=== PATIENT | female | born 1960 | race Caucasian/White ===

== ENCOUNTER 2018-10-01 19:20 | Inpatient (IN) ==
[2018-10-01] MEDS ORDERED: MORPHINE IV ONE (20:08)
[2018-10-01] MEDS ORDERED: NS 1,000 ML IV ONE ×2 (20:08→22:40)
[2018-10-01] MEDS ORDERED: ZOFRAN IV ONE (20:08)
[2018-10-01] MEDS ORDERED: ASPIRIN PO ONE (21:11)
[2018-10-01 21:31] LABS: BASO# 0.04 X1000 (0.0-0.2); BASO% 0.3 % (0.0-0.8); EOS# 0.07 X1000 (0.0-0.7); EOS% 0.5 % (0.0-10.0); HEMATOCRIT 33.2 % (37.0-47.0); HEMOGLOBIN 10.6 g/dL (12.0-16.0); IMM GRAN# 0.08 X1000 (0.0-0.04); IMM GRAN% 0.5 % (0.0-0.5); LYMPH# 1.14 X1000 (1.2-3.4); LYMPH% 7.5 % (20.5-51.1); MCH 29.4 PG (27-31); MCHC 31.9 g/dL (33-37); MCV 92.2 FL (81-99); MONO# 1.08 X1000 (0.11-0.59); MONO% 7.1 % (1.7-9.3); MPV 11.4 FL (7.4-10.4); NEUT# 12.73 X1000 (1.4-6.5); NEUT% 84.1 % (42.2-75.2); PLT 273 X1000 (130-400); WBC 15.14 X1000 (4.8-10.8)
[2018-10-01 21:32] LABS: INR 1.03
[2018-10-01 21:33] LABS: PTT 32.6 Seconds (22.3-41.8)
[2018-10-01 21:43] LABS: ALBUMIN 3.3 g/dL (3.5-5.0); CALCIUM 8.9 mg/dL (8.8-10.2); CREATININE 1.3 mg/dL (0.5-0.9); POTASSIUM 4.3 mmol/L (3.5-5.1); TOTAL BILIRUBIN 0.3 mg/dL (0.20-1.00); TOTAL PROTEIN 6.4 g/dL (6.3-8.3)
[2018-10-01 22:11] LABS: CK INDEX 0.3 (0.0-2.5); CK-MB 3.39 ng/mL (0.0-5.0)
[2018-10-01] MEDS ORDERED: LASIX IV ONE (22:14)
[2018-10-01] MEDS ORDERED: ROCEPHIN 1 GM in NS 50 ML IV ONE (22:15)
[2018-10-01] MEDS ORDERED: TYLENOL PO ONE (22:26)
[2018-10-01] MEDS ORDERED: VANCOMYCIN 1 GM/NS 1 GM/250 ML IVPB IV ONE (22:35)
[2018-10-01] MEDS ORDERED: NS 500 ML IV ONE (22:40)
[2018-10-01] MEDS ORDERED: ZOFRAN IV PRN (22:44)
[2018-10-01] MEDS ORDERED: LOVENOX SUBQ ONE (23:25)
[2018-10-01 23:35] LABS: URINE SOURCE CATH
[2018-10-02 00:04] LABS: BILIRUBIN URINE NEGATIVE (NEGATIVE); BLOOD URINE NEGATIVE (NEGATIVE); CLARITY CLEAR (CLEAR); COLOR YELLOW; GLUCOSE URINE NEGATIVE (NEGATIVE); KETONE URINE NEGATIVE (NEGATIVE); LEUKOCYTES URINE TRACE (NEGATIVE); NITRITE URINE NEGATIVE (NEGATIVE); PH URINE 6.5; PROTEIN URINE TRACE mg/dL (NEGATIVE); SP GRAVITY URINE 1.005; URINE BACTERIA 1+ /HFP; URINE EPITHELIAL CELLS <10 /HPF (<10); URINE RBC <10 /HPF (<10); URINE WBC <10 /HPF (<10); UROBILINOGEN URINE 1 mg/dL
[2018-10-02] MEDS: LOVENOX SUBQ SCH ×2 (00:36→10:36)
[2018-10-02] MEDS ORDERED: NS 1,000 ML ONE (01:33)
[2018-10-02] MEDS ORDERED: LEVOPHED ONE (01:36)
[2018-10-02] MEDS ORDERED: VANCOMYCIN 500 MG/NS 500 MG/100 ML IVPB IV ONE (02:00)
[2018-10-02] MEDS ORDERED: MAXIPIME 2 GM in NS 100 ML IV ONE (02:00)
[2018-10-02] MEDS ORDERED: LEVOPHED 8 MG in D5 1/2 NS 250 ML IV SCH (02:00)
[2018-10-02] MEDS ORDERED: MORPHINE IV PRN (03:39)
[2018-10-02] MEDS ORDERED: PHENERGAN PO PRN (07:12)
[2018-10-02] MEDS ORDERED: TYLENOL PR PRN (07:13)
[2018-10-02] MEDS: PROTONIX IV SCH (08:20)
[2018-10-02] MEDS: SODIUM CHLORIDE 0.9% INJ SCH (08:20)
[2018-10-02] MEDS ORDERED: VANCOMYCIN IV PER PHARMACY MISC SCH (09:00)
--- NOTE | 2018-10-02 09:31 | Diag Imaging Result Doc PS360 ---
EXAM: CHEST-2 VIEWS INDICATION: cp/productive cough TECHNIQUE: 2 views COMPARISON: None. FINDINGS: There is infiltrate in the right lower lung zone suggesting pneumonia. The left lung is clear. There is no discrete pleural fluid collection or pneumothorax. Cardiac silhouette appears mildly prominent, probably due to magnification from AP technique. Central vasculature is unremarkable. IMPRESSION: Right lower lung zone consolidation is described. Electronically signed by Jovan Law 10/02/2018 9:29 AM
[2018-10-02] MEDS ORDERED: DUONEB (A & A) INH PRN (09:33)
[2018-10-02] MEDS: NS 1,000 ML IV SCH ×2 (10:00→19:47)
[2018-10-02 10:12] LABS: HEMATOCRIT 30.8 % (37.0-47.0); HEMOGLOBIN 9.7 g/dL (12.0-16.0); MCH 29.4 PG (27-31); MCHC 31.5 g/dL (33-37); MCV 93.3 FL (81-99); MPV 11.8 FL (7.4-10.4); RBC 3.3 XMIL (4.2-5.4); RDW 17.3 % (11.5-14.5); WBC 5.94 X1000 (4.8-10.8)
[2018-10-02 10:24] LABS: AGAP 10; ALBUMIN 2.8 g/dL (3.5-5.0); BUN 23 mg/dL (8-22); CALCIUM 8.1 mg/dL (8.8-10.2); CHLORIDE 106 mmol/L (98-107); COSMO 283; CREATININE 0.9 mg/dL (0.5-0.9); ESTIMATED GFR > 60; GLUCOSE 135 mg/dL (70-104); PHOSPHORUS 2.3 mg/dL (2.7-4.5); POTASSIUM 4.1 mmol/L (3.5-5.1); SODIUM 139 mmol/L (136-145); TCO2 23 mmol/L (25-35)
[2018-10-02] MEDS: CELEXA PO SCH (11:21)
[2018-10-02] MEDS: SUBOXONE 2 MG/0.5 MG FILM SL SCH ×2 (11:21→22:03)
[2018-10-02] MEDS: DUONEB (A & A) INH SCH ×4 (12:28→23:48)
[2018-10-02 13:07] LABS: UR AMPHETAMINES QUAL NONE DETECTED (NONE DETECT); UR BARBITUATES QUAL NONE DETECTED (NONE DETECT); UR BENZODIAZEPIN QUAL PRESUMPTIVE POSITIVE (NONE DETECT); UR CANNABINOIDS QUAL NONE DETECTED (NONE DETECT); UR COCAINE QUAL NONE DETECTED (NONE DETECT); UR METHADONE QUAL NONE DETECTED (NONE DETECT); UR METHAMPHETAMINE QUAL NONE DETECTED (NONE DETECT); UR OPIATES QUAL PRESUMPTIVE POSITIVE (NONE DETECT); UR OXYCODONE QUAL NONE DETECTED (NONE DETECT); UR PCP QUAL NONE DETECTED (NONE DETECT); UR PROPOXYPHENE QUAL NONE DETECTED (NONE DETECT); UR TCA QUAL PRESUMPTIVE POSITIVE (NONE DETECT)
--- NOTE | 2018-10-02 13:15 | Extremity Venous Study ---
EXAM: Venous U/S Bilateral Legs INDICATION: elevated ddimer, CP, hypotension TECHNIQUE: COMPARISON: None. FINDINGS: There is normal Doppler flow, compressibility, and augmentation involving the deep venous systems of the right and the left lower extremities. The great saphenous veins on the right and the left also appear to be patent. IMPRESSION: No evidence of DVT. Electronically signed by Jovan Law 10/02/2018 1:12 PM
[2018-10-02] MEDS: CARAFATE PO SCH ×2 (13:33→16:11)
--- NOTE | 2018-10-02 13:43 | Diag Imaging Result Doc PS360 ---
EXAM: CT ANGIOGRM PULMONARY ARTERIES INDICATION: elevated ddimer, acute hypoxic resp failure TECHNIQUE: This exam was performed using automated exposure control, adjustment of mA or kV according to patient size, and/or use of iterative reconstruction technique. Thin section axial images and 3-D MIPS were obtained. COMPARISON: None. FINDINGS: There is no evidence of pulmonary embolism. There is no evidence of aortic dissection or aneurysm. There is cardiomegaly. There are small shotty mediastinal and hilar lymph nodes that are probably reactive. There is fairly severe pulmonary emphysema. There is dense airspace consolidation in the inferior right upper lobe and, to a lesser degree, the right middle lobe and right lower lobe consistent with pneumonia. There are very small effusions at both lung bases and there is bibasilar atelectasis. There is no pneumothorax. There is thoracic spondylosis. The bony structures of the thorax are grossly intact. IMPRESSION: 1.Pulmonary emphysema. 2.Multilobar pneumonia on the right. 3.Cardiomegaly. 4.No evidence of pulmonary embolism. Electronically signed by Jovan Law 10/02/2018 1:41 PM
[2018-10-02] MEDS: VALIUM PO PRN (16:11)
[2018-10-02] MEDS: MAXIPIME 2 GM in NS 100 ML IV SCH (16:13)
--- NOTE | 2018-10-02 18:19 | HISTORY AND PHYSICAL ---
CHIEF COMPLAINT: Is cough, fever, chills, generalized weakness, chest pain and left arm weakness. HISTORY OF PRESENT ILLNESS: This is a 58-year-old female with a history of COPD , asthma, who presented to the emergency room complaining of fever, chills, cough, chest pain and general weakness. She stated that this had been present for 3 to 4 days and that over the 24 hours prior to coming in she had some bilateral hip and back pain. This was after she started having fevers as high as 102. She did have a temperature of 101.3 degrees in the emergency room with some hypotension and was found to have right lower lobe pneumonia on chest x-ray. She was given IV hydration as well as vancomycin and Rocephin in the emergency room with Maxipime and she was admitted to ICU on sepsis protocol. PAST MEDICAL HISTORY: Asthma, COPD, hypertension, seizure history. PAST SURGICAL HISTORY: Hysterectomy, back surgery x9, 2 knee surgeries. SOCIAL: Smokes a pack of cigarettes a day. She denies alcohol or illicit drug use. ALLERGIES: Atorvastatin with unknown reaction. HOME MEDICATIONS: A list will be obtained by the nursing staff and will be restarted as is appropriate. REVIEW OF SYSTEMS: Discussed with the patient with pertinent positives stated in the HPI. She denied any syncope, dizziness, any sinus pain, throat pain, palpitations, any shortness of breath, PND, orthopnea, nausea, vomiting, diarrhea, constipation, black or bloody vomitus or stools, any hematuria, dysuria, frequency, urgency. PHYSICAL EXAMINATION: GENERAL: This is a 58-year-old female who is lying in the bed in ICU in no distress. VITAL SIGNS: Blood pressure is 105/51 with a heart rate of 70, respirations are 16, temperature is 97.9 degrees with O2 saturation 98% on 3 L nasal cannula. HEENT: Pupils are equal, round, react to light. EOMs are intact. Sclerae are anicteric. Head is normocephalic, atraumatic. Mucous membranes are moist. NECK: Supple with trachea midline. CARDIOVASCULAR: Regular rate and rhythm. S1 and S2 appreciated. She has no lower extremity edema. Peripheral pulses are palpable x4 extremities. PULMONARY: Breath sounds are clear with no increased work of breathing noted. Chest rises and falls symmetric respiration. GASTROINTESTINAL: Abdomen is soft, nontender, nondistended with bowel sounds in all 4 quadrants. GENITOURINARY: Hillman is patent to bedside bag with clear urine draining. NEUROLOGIC: She is alert and oriented x3. SKIN: Warm and dry. LABS: WBC is 15.1 with hemoglobin 10.6, hematocrit 33.2, platelets of 273,000. D-dimer is 2.34, sodium is 134, potassium 4.3, BUN 26, creatinine 1.3 with a glucose of 203. Urinalysis is essentially negative. Urine drug screen is presumptive positive for opiates, tricyclics and benzodiazepine. Chest x-ray reveals right lower lung consolidation. ASSESSMENT AND PLAN: 1. Sepsis secondary to pneumonia. 2. Right lower lobe pneumonia. Blood cultures were obtained. She was started on vancomycin and Maxipime which we will continue and any further antibiotics will be culture driven. 3. History of chronic obstructive pulmonary disease with mild exacerbation. She will be placed on DuoNeb q.4 hours with q.2 hours p.r.n. Will identify her home medications and continuing these as is appropriate. 4. Hypertension. The patient was hypotensive in the emergency room. Will monitor vital signs and restart antihypertensives when appropriate. 5. Acute hypoxic respiratory failure. The patient did have an O2 saturation of 81%. Will give supplemental oxygen, treatments as stated above and follow. 6. Acute kidney injury. rehydrate, renal dose medications, we will repeat labs this morning. 7. Elevated D-dimer. We will obtain a V/Q study due to her creatinine being elevated as well as a bilateral lower extremity Doppler. We will continue Lovenox 1 mg/kg until results of test. If these are negative for PE or DVT we will stop treatment dose of Lovenox. 8. Deep vein thrombosis prophylaxis. As stated above will continue Lovenox as long as pertinent then we will decrease to a prophylaxis dose. 9. Gastrointestinal prophylaxis. Will use Protonix. 10. History of opiate abuse. The patient is on Suboxone. We will restart at appropriate dose. Further treatments pending hospital course. Dictated by EVERETTE Ramos for Federico Phillip MD This chart was documented by, EVERETTE Ramos and accurately reflects the services performed, treatment plan and medical decisions as attested by the providers signature Federico Phillip MD. cc: MoonEVERETTE Alvarez MD [facility]
--- NOTE | 2018-10-02 19:25 | HISTORY AND PHYSICAL ---
ADDENDUM: Patient seen and examined by myself, full note dictated and discussed with nurse practitioner. The patient presented to the hospital with febrile illness. Her blood pressures were terribly low. She was started on Levophed. Currently we are weaning off her Levophed and she is improving. Will continue antibiotics and supportive care. cc: Federico Phillip MD
[2018-10-02] MEDS: ANORO ELLIPTA 62.5-25 MCG INH INH SCH (19:58)
[2018-10-02] MEDS: TYLENOL PO PRN (19:59)
[2018-10-03] MEDS: NS 1,000 ML IV SCH (00:05)
[2018-10-03] MEDS: VALIUM PO PRN ×3 (00:05→18:59)
[2018-10-03] MEDS: TYLENOL PO PRN (02:06)
[2018-10-03] MEDS: MAXIPIME 2 GM in NS 100 ML IV SCH ×2 (03:25→18:58)
[2018-10-03] MEDS: DUONEB (A & A) INH SCH ×6 (03:52→23:12)
[2018-10-03] MEDS ORDERED: VANCOMYCIN 1,500 MG in NS 250 ML IV SCH ×2 (05:00→23:00)
[2018-10-03 06:35] LABS: HEMATOCRIT 29.5 % (37.0-47.0); HEMOGLOBIN 9.1 g/dL (12.0-16.0); MCH 29.2 PG (27-31); MCHC 30.8 g/dL (33-37); MCV 94.6 FL (81-99); MPV 11.2 FL (7.4-10.4); RBC 3.12 XMIL (4.2-5.4); RDW 17.5 % (11.5-14.5); WBC 5.58 X1000 (4.8-10.8)
[2018-10-03 06:44] LABS: AGAP 8; BUN 15 mg/dL (8-22); CALCIUM 8.2 mg/dL (8.8-10.2); CHLORIDE 108 mmol/L (98-107); CREATININE 0.9 mg/dL (0.5-0.9); ESTIMATED GFR > 60; POTASSIUM 4.1 mmol/L (3.5-5.1); SODIUM 140 mmol/L (136-145); TCO2 24 mmol/L (25-35)
[2018-10-03] MEDS: ANORO ELLIPTA 62.5-25 MCG INH INH SCH ×2 (08:15→19:25)
[2018-10-03] MEDS: CELEXA PO SCH (09:05)
[2018-10-03] MEDS: CARAFATE PO SCH ×3 (09:05→18:59)
[2018-10-03] MEDS: PROTONIX IV SCH (09:05)
[2018-10-03] MEDS: SUBOXONE 2 MG/0.5 MG FILM SL SCH ×2 (09:14→21:26)
[2018-10-03] MEDS: LOVENOX SUBQ SCH (09:28)
[2018-10-03 12:37] LABS: ALBUMIN 2.8 g/dL (3.5-5.0); GLUCOSE 109 mg/dL (70-104); PHOSPHORUS 3.1 mg/dL (2.7-4.5)
[2018-10-03 13:34] LABS: COSMO 281
[2018-10-03] MEDS: NEURONTIN PO SCH ×2 (13:49→20:50)
[2018-10-03] MEDS ORDERED: SEROQUEL PO SCH (21:00)
[2018-10-04] MEDS: DUONEB (A & A) INH SCH ×4 (03:06→15:26)
[2018-10-04] MEDS: NEURONTIN PO SCH ×2 (04:06→12:00)
--- NOTE | 2018-10-04 05:05 | PROGRESS NOTE ---
DATE: 10/03/2018 SUBJECTIVE: Patient notes that she is feeling better. Denies any chest pain, palpitations. States she is starting to eat better. Denies any fevers. OBJECTIVE: Vital signs: Temperature 97.7, temperature pulse 63, respiratory rate 20, BP 134/65. General: Patient is awake, alert, currently in no respiratory distress, sitting in the bed. HEENT: Normocephalic, atraumatic. [place]. Neck: Supple. CARDIOVASCULAR: Regular rate. Chest: Clear and nonlabored. Abdomen: Soft and nondistended. Extremities: Moves all extremities. ASSESSMENT: 1. Sepsis due to pneumonia, resolved. 2. Right lower lobe pneumonia, improved. 3. Chronic obstructive pulmonary disease with exacerbation improving. 4. Hypertension, stable. 5. Elevated D-dimer. She will need a Ventilation/Perfusion scan tomorrow. D-dimer with a negative ultrasound per report; although, do not have final dictation and a negative CT scan. 6. Chronic pain. 7. Chronic insomnia. 8. Chronic anxiety. PLAN: Discussed with patient that we cannot increase her Suboxone back to her home dosage and continue her high dose of benzos, as well as Ambien. Discussed with her the perils of this combination to include respiratory failure and unintended . We will start back her Seroquel, but not her Ambien magaly. She currently is on half-dose Suboxone. Hopefully, we can increase her Suboxone tomorrow to a full dose at 8/2 and be able to discharge home. cc: Federico Phillip MD
[2018-10-04 05:51] LABS: HEMATOCRIT 30.7 % (37.0-47.0); HEMOGLOBIN 9.4 g/dL (12.0-16.0); MCH 28.8 PG (27-31); MCHC 30.6 g/dL (33-37); MCV 94.2 FL (81-99); RBC 3.26 XMIL (4.2-5.4); RDW 17.4 % (11.5-14.5); WBC 6.44 X1000 (4.8-10.8)
[2018-10-04 06:09] LABS: AGAP 11; ALBUMIN 2.9 g/dL (3.5-5.0); BUN 8 mg/dL (8-22); CHLORIDE 106 mmol/L (98-107); COSMO 286; CREATININE 0.7 mg/dL (0.5-0.9); ESTIMATED GFR > 60; GLUCOSE 108 mg/dL (70-104); PHOSPHORUS 3.5 mg/dL (2.7-4.5); POTASSIUM 3.7 mmol/L (3.5-5.1); SODIUM 144 mmol/L (136-145); TCO2 28 mmol/L (25-35)
[2018-10-04] MEDS: ANORO ELLIPTA 62.5-25 MCG INH INH SCH (08:05)
[2018-10-04] MEDS: PROTONIX IV SCH (08:54)
[2018-10-04] MEDS: CELEXA PO SCH (08:54)
[2018-10-04] MEDS: CARAFATE PO SCH ×2 (08:54→12:00)
[2018-10-04] MEDS: LOVENOX SUBQ SCH (08:54)
[2018-10-04] MEDS: SODIUM CHLORIDE 0.9% INJ SCH (08:54)
[2018-10-04] MEDS ORDERED: TRICOR PO SCH (09:00)
[2018-10-04] MEDS: SUBOXONE 2 MG/0.5 MG FILM SL SCH (09:09)
[2018-10-04] MEDS: VALIUM PO PRN (12:04)
[2018-10-04 12:30] VITALS: BP 162/72
[2018-10-04] MEDS: TYLENOL PO PRN (12:38)
[2018-10-04] MEDS: MAXIPIME 2 GM in NS 100 ML IV SCH (15:51)
--- NOTE | 2018-10-05 03:46 | PROGRESS NOTE ---
DATE: 10/04/2018 The patient was seen on the day of discharge. She is doing well. Apparently, she was started on pressors but she is on the floor now, but I think she is stabilized. She does have a right lower lobe pneumonia. She has been on vancomycin and cefepime, had been doing okay. Today, plan was to discharge her. She was stable. She had some sepsis on admission. CTA was negative for PE but she has emphysema and multilobar pneumonia. Clinically, she was doing well. Saturations were 92 on 2 L, 86% on room air. She does have oxygen but she will need to be set up for further oxygen, I guess. In any case, she was felt stable for discharge. cc: Blas Calix MD
--- NOTE | 2018-10-09 08:06 | PROVIDER DOCUMENTATION ---
This chart was entered by Marizol Deleon Scribe, acting as scribe for Hira Cedeño CRNP. HPI-Chest Pain <Finesse Jay - Last Filed: 10/01/18 22:36> - General Source: patient - History of Present Illness-CP Location: reports: central Chest Pain Radiation: reports: arms (leftweakness- no pain) Severity in ED: mild Onset/Duration: 24 hours ago Timing: still present Context/Activities at Onset: reports: light activity Modifying Factors: improves with: breathing (worsens pain) Associated Symptoms: reports: fever/chills, weakness. denies: back pain, nausea , shortness of breath, vomiting Nitro Today/Relief: no nitro taken today Aspirin Treatment Today: no aspirin today Similar Symptoms Previously?: No Recently Seen Here or By Another Healthcare Provider: No <Hira Cedeño - Last Filed: 10/09/18 08:06> - General Chief Complaint: General Adult Stated Complaint: POSS STROKE LIKE SX Time Seen by Provider: 10/01/18 19:48 Allergies/Adverse Reactions: Patient Allergies Allergy/AdvReac Type Severity Reaction Status Date / Time atorvastatin calcium * Allergy Unknown Verified 07/19/18 13:40 [From Lipitor] Home Medications: Home Medication List Medication Instructions Recorded Confirmed Last Taken Type Fenofibrate [Fenoglide] 130 mg PO DAILY 08/08/14 10/02/18 Unknown History Losartan Potassium 50 mg PO DAILY 08/08/14 10/02/18 08/08/14 07:00 History Quetiapine Fumarate [Seroquel] 100 mg PO HS 08/08/14 10/02/18 08/07/14 20:00 History Varenicline [Chantix] 1 mg PO DAILY 08/08/14 10/02/18 Unknown History Zolpidem [Ambien] 10 mg PO QHS 08/08/14 10/02/18 08/06/14 21:00 History Buprenorphine/Naloxone S.l. 1 each SL Q12HR 10/02/18 10/02/18 Unknown History [Suboxone 8 mg/2 mg] Citalopram [Celexa] 20 mg PO DAILY 10/02/18 10/02/18 Unknown History Diazepam [Valium] 5 mg PO Q8HR 10/02/18 10/02/18 Unknown History Sucralfate [Carafate] 1 gm PO TID 10/02/18 10/02/18 Unknown History Umeclidinium Brm/Vilanterol Tr 1 each IH Q12HR 10/02/18 10/02/18 Unknown History [Anoro Ellipta 62.5-25 Mcg INH] Gabapentin 300 mg PO TID 10/03/18 10/03/18 Unknown History Albuterol 2.5MG/Ipratrop 0.5MG 3 ml INH RTQ6H #120 neb 10/04/18 Unknown Rx [Duoneb] CefUROXIME [Ceftin] 250 mg PO Q12HR 7 Days #14 tab 10/04/18 Unknown Rx - History of Present Illness-CP Nature of Presenting Problem: pt is a 58 yr old female presenting with chest pain, left arm weakness, cough, fever/chills and general weakness. pt denies shortness of breath. (Marizol Deleon ) pt is a 58 yr old female presenting with chest pain, left arm weakness, cough, fever/chills and general weakness. pt denies shortness of breath. (Hira Cedeño) Review of Systems - Adult - REVIEW OF SYSTEMS - ADULT Constitutional: reports: chills, fever, fatique Eyes: denies: discharge, blurred vision, double vision, redness Ears, Nose, Mouth & Throat: denies: ear pain, sinus problem, throat pain Cardiovascular: reports: chest pain. denies: palpitations, syncope Respiratory: reports: cough, wheezing. denies: shortness of breath Gastrointestinal: denies: abdominal pain, diarrhea, nausea, vomiting Genitourinary: reports: no symptoms reported Musculoskeletal: denies: back pain, muscle aches, neck pain Integumentary: reports: no symptoms reported Neurological: reports: other ( left arm weakness). denies: dizziness/vertigo, headache/migraines, syncope Psychiatric: reports: no symptoms reported Endocrine: reports: no symptoms reported Hematologic/Lymphatic: reports: no symptoms reported Allergic/Immunologic: reports: no symptoms reported All Other Systems: Reviewed and Negative <Hira Cedeño - Last Filed: 10/09/18 08:06> Past History - Adult - PAST MEDICAL HISTORY-ADULT Review of Records: reports: Nursing Assessment Review, Medications Reviewed, Social history reviewed & non-contributory. Major Childhood Illnesses: reports: denies history Cardiovascular: reports: denies history Respiratory: reports: denies history Gastrointestinal: reports: denies history Obstetrical/Gynecological: reports: denies history Genitourinary: reports: denies history Musculoskeletal: reports: denies history Neurological: reports: denies history Endocrine/Immune: reports: denies history Other Conditions: reports: denies history - IMMUNIZATION STATUS Childhood Immunizations: See Nurse Assessment Flu Vaccine: See Nurse Assessment - FAMILY HISTORY Family History: reviewed, not pertinent - SOCIAL HISTORY Smoking: cigarettes Provider spent 3-5 mins advising pt. on dangers of tobacco.: Discussed manners to quit use, and f/u contacts for add'l counseling. Substance Use: denies Living Situation: family <Hira Cedeño - Last Filed: 10/09/18 08:06> Physical Exam-General - PHYSICAL EXAM-ADULT Initial Vital Signs Reviewed: Yes - CONSTITUTIONAL General Appearance: alert, no apparent distress, obese - EYES Eyes: PERRL/EOMI - HEAD, EARS, NOSE, MOUTH & THROAT HENMT: normocephalic/atraumatic, moist mucous membranes, normal ENT inspection - NECK Neck: non-tender, full range of motion, supple - RESPIRATORY Respiratory: chest non-tender, no pleuratic chest pain, no respiratory distress , rhonchi, wheezing (inspritory/expritory) - CARDIOVASCULAR Cardiovascular: normal peripheral pulses, no edema, no gallop, no JVD, tachycardia (102) - GASTROINTESTINAL (ABDOMEN) Abdominal Exam: normal bowel sounds, non tender, soft - LYMPHATIC Lymphatic: no adenopathy - MUSCULOSKELETAL Back Exam: normal inspection, no CVA tenderness, no vertebral tenderness Extremity: normal range of motion, non-tender, normal gait, normal inspection - SKIN Integumentary: normal color, normal turgor, warm/dry - NEUROLOGIC Neurologic: grossly normal, no motor/sensory deficits. negative: facial droop, focal weakness, motor weakness - PSYCHIATRIC Psych/Mental Status: normal mood/affect, normal thought content, normal thought process, oriented x 3 <Hira Cedeño - Last Filed: 10/09/18 08:06> Progress - PLAN OF CARE/RESULTS Result Diagrams: 10/01/18 20:10 10/01/18 20:10 <Finesse Jay - Last Filed: 10/01/18 22:36> - PLAN OF CARE/RESULTS Result Diagrams: 10/04/18 04:57 10/04/18 04:57 <Hira Cedeño - Last Filed: 10/09/18 08:06> - PLAN OF CARE/RESULTS Progress/Plan/Lab Results: Orders Category Date Time Status Admit - [facility] Routine AdmDCTranf 10/01/18 22:44 Active Cardiac Monitoring DIRECTED Care 10/01/18 21:11 Completed Notify MD/PA/EVERETTE for exam NOW Care 10/01/18 22:41 Completed Oxygen Therapy- ED Nursing DIRECTED Care 10/01/18 21:11 Completed Repeat Vital Signs .Blood Pressure Care 10/01/18 22:41 Completed Repeat Vital Signs .Heart Rate Care 10/01/18 22:41 Completed Repeat Vital Signs .Oxygen Saturation Care 10/01/18 22:41 Completed Repeat Vital Signs .Respiratory Rate Care 10/01/18 22:41 Completed Repeat Vital Signs .Temp Care 10/01/18 22:41 Completed Resuscitation Status Routine Care 10/01/18 22:44 Ordered Saline Loc NOW Care 10/01/18 21:11 Completed Vital Signs Order Q 4-HR ASSESS Care 10/01/18 22:44 Active Z-Document. for Tele Applied ORDERED Care 10/01/18 22:46 Completed CHEST-2 VIEWS [RAD] Stat Exams 10/01/18 21:11 Completed AMYLASE [CHEM] Stat Lab 10/01/18 20:10 Completed BLOOD CULTURE [BLDCUL] Stat Lab 10/01/18 20:36 Completed CBC WITH ELECTRONIC DIFF [HEME] Stat Lab 10/01/18 20:10 Completed CK PROFILE [SP CHEM] Stat Lab 10/01/18 20:10 Completed COMPREHENSIVE METABOLIC PANEL [CHEM] Stat Lab 10/01/18 20:10 Completed D-DIMER [COAG] Stat Lab 10/01/18 20:10 Completed LACTATE, PLASMA [CHEM] Stat Lab 10/01/18 20:10 Completed LIPASE [CHEM] Stat Lab 10/01/18 20:10 Completed PRO B-NATRIURETIC PEPTIDE Stat Lab 10/01/18 20:10 Completed PROTIME WITH INR [COAG] Stat Lab 10/01/18 20:10 Completed PTT [COAG] Stat Lab 10/01/18 20:10 Completed TROPONIN T Stat Lab 10/01/18 20:10 Completed 0.9% Sodium Chloride Inj [Ns] 1,000 ml Med 10/01/18 20:08 Discontinued IV 999 mls/hr 0.9% Sodium Chloride Inj [Ns] 1,000 ml Med 10/01/18 22:40 Discontinued IV As Directed 0.9% Sodium Chloride Inj [Ns] 500 ml Med 10/01/18 22:40 Discontinued IV 999 mls/hr Acetaminophen [Tylenol] Med 10/01/18 22:26 Discontinued 1,000 mg PO NOW ONE Aspirin Med 10/01/18 21:11 Discontinued 325 mg PO NOW ONE CefTRIAXONE [Rocephin] 1 gm Med 10/01/18 22:15 Discontinued 0.9% Sodium Chloride Inj [Ns] 50 ml IV NOW Furosemide [Lasix] Med 10/01/18 22:14 Discontinued 60 mg IV NOW ONE Morphine Med 10/01/18 20:08 Discontinued 2 mg IV NOW ONE Ondansetron [Zofran] Med 10/01/18 20:08 Discontinued 4 mg IV NOW ONE Ondansetron [Zofran] Med 10/01/18 22:44 Discontinued 4 mg IV Q4H PRN PRN Vancomycin 1 gm/Ns Med 10/01/18 22:35 Discontinued 1 gm in 250 ml IV NOW Oxygen Device Routine Oth 10/01/18 22:46 Completed EKG [EKG] Stat Ther 10/01/18 21:11 Ordered Transfer/Admit Order [TRANSFER] Routine Transfer 10/01/18 22:[address] Jay spoke with patient after I spoke with patient about admission to hospital on 10/01/18, patient agreed with POC and verbalized understanding. ( Hira Cedeño) Departure - Departure Certified Medical Emergency: Emergent - Critical Care Note This patient required my direct & personal management of CC.: Yes <Finesse Jay - Last Filed: 10/01/18 22:36> - Departure Date of Disposition Decision: 10/01/18 Time of Disposition Decision: 23:00 <Hira Cedeño - Last Filed: 10/09/18 08:06> - Departure DIAGNOSIS: Febrile illness, Septic shock Disposition: ADMITTED INPATIENT 09 Condition: Stable Attestation - Physician/ OMERO Attestation Patient care was provided by Advanced Practice Provider:: Yes Advanced Practice Provider:: Hria Cedeño Advanced Practice Provider documentation review:: The Mid-level provider documentation, treatment plan and medical decision making was reviewed by the physician who agrees with all treatment and medical decision making by the MLP. The physician spent face to face time with patient:: Yes Advanced Practice Provider documentation review:: Supervising physician onsite and consulted in the evaluation and care of this patient. The physician did have a face to face encounter with the patient. <Hira Cedeño - Last Filed: 10/09/18 08:06> This chart was documented by the indicated scribe, (Marizol Deleon, [employer]) and accurately reflects the services I performed and decisions made by me, Hira Cedeño CRNP, as attested by the provider's signature.
--- NOTE | 2018-10-21 08:44 | DISCHARGE SUMMARY ---
ADMISSION DATE: 10/01/2018 DISCHARGE DATE: 10/04/2018 PRIMARY CARE PHYSICIAN: Listed as none. ADMISSION DIAGNOSES: 1. Sepsis secondary to pneumonia. 2. Right lower lobe pneumonia. 3. History of chronic obstructive pulmonary disease with mild exacerbation. 4. Hypertension. 5. Acute hypoxic respiratory failure. 6. Acute kidney injury. 7. Elevated D-dimer. DISCHARGE DIAGNOSES: 1. Sepsis due to pneumonia, resolved. 2. Right lower lobe pneumonia, improved. 3. Mild acute chronic obstructive pulmonary disease exacerbation, improved. 4. Hypertension, stable. 5. Elevated D-dimer. Pulmonary arteriogram showed no evidence of pulmonary emboli. 6. Chronic pain. 7. Chronic insomnia. 8. Chronic anxiety. SUMMARY OF FINDINGS: This is a 58-year-old female who presented to the ER with complaints of fever, chills, cough, chest pain, and general weakness for 3 to 4 days, that had worsened for 24 hours prior to coming in. She states she had fevers as high as 102. When she arrived, she had a temperature of 101.3 degrees. She was found to have a right lower lobe pneumonia. She was given IV hydration, IV antibiotics, O2, DuoNebs. We did do a workup to rule out PE/DVT due to an elevated D-dimer. Her venous Doppler showed no evidence of a DVT. Pulmonary arteriogram showed no evidence of pulmonary embolism. She improved on her breathing, and was saturating 94% on 2 L via O2, and it was felt that as she had been afebrile for greater than 24 hours and white count had returned to normal, she could safely be discharged home. DISCHARGE MEDICATIONS: Included a prescription for DuoNeb every 6 hours (#120 with 1 refill), a prescription for Ceftin 250 mg p.o. every 12 hours for 7 days (#14 with no refills). She will continue her home medications of Celexa 20 mg p.o. daily, Valium 5 mg p.o. every 8 hours, Fenoglide 130 mg p.o. daily, gabapentin 300 mg p.o. t.i.d., losartan 50 mg p.o. daily, Seroquel 100 mg p.o. at bedtime, Carafate 1 gram p.o. t.i.d., Anoro Ellipta 62.5/25 mcg inhaler every 12 hours, Chantix 1 mg p.o. daily, Ambien 10 mg p.o. at bedtime. FOLLOWUP: She will need to obtain a primary care physician. Will give her the physician referral line. TIME SPENT: A 32-minute discharge. Dictated by EVERETTE Wren for Blas Calix MD cc: EVERETTE Wren MD
== END 2018-10-04 17:42 | disposition home or self-care (01) | DRG 871 ==
LOC: P.ED 19:20 → SUATTDRO 23:07 → P.ICU 23:07 → P.MEDSURG 10-03 15:00
PROVIDERS: ATTEND Internal Medicine
CPT/HCPCS: 51702; 71020; 71046; 71275; 80053; 80069; 80104; 80301; 80305; 81001; 82150; 82550; 82553; 83605; 83690; 83880; 84484; 85025; 85027; 85379; 85610; 85730; 87040; 87070; 87088; 87205; 93005; 93970; 94640; 94761; 94799; 96361; 96365; 96375; 99285; A9270; C9113; G0431; G0434; G0477; J0692; J0696; J1650; J2270; J2405; J3370; J7030; J7040; J7050; Q9967; S0164

== ENCOUNTER 2019-03-11 10:05 | Inpatient (IN) ==
[2019-03-11] MEDS ORDERED: NARCAN ONE ×2 (10:15→12:40)
[2019-03-11] MEDS ORDERED: NARCAN IV ONE ×4 (10:22→13:11)
[2019-03-11 10:26] LABS: BE -3.2 mmoll (-3.0-3.0); BLOOD TYPE ARTERIAL; HCO3-(ACT) 22.4 mmoll (20.0-26.0); METHB 1.2 % (0.0-1.5); O2(CT) 15.7 mL/dL (15.0-23.0); O2HB 93.7 % (95.0-99.0); PO2(98.6) 108 mmHg (60-100); SAMPLE BLOOD; SAO2 99.3 % (95.0-100.0); THB 11.8 g/dL (11.5-17.4); pH(98.6) 7.24 (7.35-7.45)
[2019-03-11 10:35] LABS: ALLEN TEST NO; MODALITY NRB; PCO2(98.6) 58 mmHg (35-45)
--- NOTE | 2019-03-11 10:50 | Diag Imaging Result Doc PS360 ---
CT HEAD W/CONTRAST - 03/11/2019 INDICATION: ams TECHNIQUE: COMPARISON: None FINDINGS: There is very mild periventricular white matter chronic microvascular disease. The ventricles and sulci are normal in size and contour. No intracranial mass or hemorrhage. The skull is intact. The sinuses are clear. IMPRESSION: No acute disease. This exam was performed using automated exposure control, adjustment of mA or kV according to patient size, and/or use of iterative reconstruction technique Electronically signed by Mac Crowley 03/11/2019 10:48 AM
--- NOTE | 2019-03-11 10:52 | Diag Imaging Result Doc PS360 ---
CHEST-1 VIEW - 03/11/2019 INDICATION: ams COMPARISON: 10/01/2018 FINDINGS: Lung volumes are critically low. There is severe crowding and some atelectasis in the lung bases, nonspecific. IMPRESSION: Critically low lung volumes. Electronically signed by Mac Crowley 03/11/2019 10:50 AM
[2019-03-11 11:03] LABS: BILIRUBIN URINE 1+ (NEGATIVE); BLOOD URINE NEGATIVE (NEGATIVE); CLARITY CLEAR (CLEAR); COLOR YELLOW; GLUCOSE URINE NEGATIVE (NEGATIVE); KETONE URINE TRACE mg/dL (NEGATIVE); LEUKOCYTES URINE NEGATIVE (NEGATIVE); NITRITE URINE NEGATIVE (NEGATIVE); PROTEIN URINE TRACE mg/dL (NEGATIVE); UROBILINOGEN URINE NORMAL
[2019-03-11 11:10] LABS: UR AMPHETAMINES QUAL NONE DETECTED (NONE DETECT); UR BARBITUATES QUAL NONE DETECTED (NONE DETECT); UR BENZODIAZEPIN QUAL PRESUMPTIVE POSITIVE (NONE DETECT); UR CANNABINOIDS QUAL NONE DETECTED (NONE DETECT); UR COCAINE QUAL NONE DETECTED (NONE DETECT); UR METHADONE QUAL NONE DETECTED (NONE DETECT); UR METHAMPHETAMINE QUAL NONE DETECTED (NONE DETECT); UR OPIATES QUAL NONE DETECTED (NONE DETECT); UR OXYCODONE QUAL NONE DETECTED (NONE DETECT); UR PCP QUAL NONE DETECTED (NONE DETECT); UR PROPOXYPHENE QUAL NONE DETECTED (NONE DETECT); UR TCA QUAL PRESUMPTIVE POSITIVE (NONE DETECT)
[2019-03-11 11:12] LABS: URINE BACTERIA 1+ /HFP; URINE EPITHELIAL CELLS <10 /HPF (<10); URINE SOURCE CATH
[2019-03-11 11:35] LABS: BASO# 0.02 X1000 (0.0-0.2); BASO% 0.2 % (0.0-0.8); EOS# 0.19 X1000 (0.0-0.7); EOS% 1.8 % (0.0-10.0); HEMATOCRIT 37.2 % (37.0-47.0); HEMOGLOBIN 11.9 g/dL (12.0-16.0); IMM GRAN# 0.02 X1000 (0.0-0.04); IMM GRAN% 0.2 % (0.0-0.5); LYMPH# 1.88 X1000 (1.2-3.4); LYMPH% 17.6 % (20.5-51.1); MCH 29.3 PG (27-31); MCV 91.6 FL (81-99); MONO# 0.82 X1000 (0.11-0.59); MONO% 7.7 % (1.7-9.3); MPV 10.9 FL (7.4-10.4); NEUT# 7.73 X1000 (1.4-6.5); NEUT% 72.5 % (42.2-75.2); PLT 203 X1000 (130-400); RBC 4.06 XMIL (4.2-5.4); RDW 14.3 % (11.5-14.5); WBC 10.66 X1000 (4.8-10.8)
--- NOTE | 2019-03-11 11:40 | EKG Report ---
Test Performed on : 03/11/2019 10:51:46 AM Test Reason : ER Blood Pressure : / mmHG Vent. Rate : 079 BPM Atrial Rate : 079 BPM P-R Int : 218 ms QRS Dur : 090 ms QT Int : 398 ms P-R-T Axes : 069 050 036 degrees QTc Int : 456 ms Sinus rhythm. with 1st degree AV block. Otherwise normal ECG No previous ECGs available Unconfirmed Result
[2019-03-11 12:10] LABS: ALBUMIN 3.7 g/dL (3.5-5.0); CALCIUM 8.7 mg/dL (8.8-10.2); CREATININE 2.3 mg/dL (0.5-0.9); POTASSIUM 5.8 mmol/L (3.5-5.1); TOTAL BILIRUBIN 0.2 mg/dL (0.20-1.00); TOTAL PROTEIN 6.8 g/dL (6.3-8.3)
[2019-03-11 12:15] LABS: INR 0.99; PROTIME 13.6 Seconds (11.0-16.0)
[2019-03-11] MEDS ORDERED: NS 1,000 ML IV ONE ×2 (12:15→13:11)
[2019-03-11 12:16] LABS: PTT 27.3 Seconds (22.3-41.8)
[2019-03-11 12:26] LABS: CK-MB 63.4 ng/mL (0.0-5.0)
[2019-03-11] MEDS ORDERED: D50W SYRINGE ONE (12:41)
[2019-03-11] MEDS ORDERED: D50W SYRINGE IV ONE (12:46)
[2019-03-11] MEDS ORDERED: ZOFRAN IV PRN (13:21)
[2019-03-11 13:24] LABS: BE -3.4 mmoll (-3.0-3.0); BLOOD TYPE ARTERIAL; HCO3-(ACT) 22.2 mmoll (20.0-26.0); METHB 1.6 % (0.0-1.5); O2(CT) 15.1 mL/dL (15.0-23.0); O2HB 95.3 % (95.0-99.0); PO2(98.6) 197 mmHg (60-100); SAMPLE BLOOD; SAO2 99.6 % (95.0-100.0); THB 10.9 g/dL (11.5-17.4); pH(98.6) 7.23 (7.35-7.45)
[2019-03-11] MEDS ORDERED: PEPCID IV SCH (13:30)
[2019-03-11] MEDS ORDERED: HEPARIN SUBQ SCH (13:30)
[2019-03-11] MEDS ORDERED: SODIUM CHLORIDE 0.9% INJ SCH (13:30)
[2019-03-11] MEDS ORDERED: NS 1,000 ML IV SCH (13:30)
[2019-03-11] MEDS ORDERED: NARCAN 2 MG in NS 500 ML IV SCH ×2 (13:30→14:00)
[2019-03-11 14:03] LABS: MODALITY NRB; PCO2(98.6) 59 mmHg (35-45)
[2019-03-11 14:04] LABS: ALLEN TEST YES
--- NOTE | 2019-03-11 14:06 | PROVIDER DOCUMENTATION ---
This chart was entered by Antonella Castillo Scribe, acting as scribe for Gerardo North MD. HPI-Neurological Disorder - General Chief Complaint: Altered Mental Status Stated Complaint: AMS Time Seen by Provider: 03/11/19 10:11 Source: EMS Allergies/Adverse Reactions: Patient Allergies Allergy/AdvReac Type Severity Reaction Status Date / Time atorvastatin calcium * Allergy Unknown Unknown Verified 03/11/19 10:11 [From Lipitor] Home Medications: Home Medication List Medication Instructions Recorded Confirmed Last Taken Type Fenofibrate [Fenoglide] 130 mg PO DAILY 08/08/14 10/02/18 Unknown History Losartan Potassium 50 mg PO DAILY 08/08/14 10/02/18 08/08/14 07:00 History Quetiapine Fumarate [Seroquel] 100 mg PO HS 08/08/14 10/02/18 08/07/14 20:00 History Varenicline [Chantix] 1 mg PO DAILY 08/08/14 10/02/18 Unknown History Zolpidem [Ambien] 10 mg PO QHS 08/08/14 10/02/18 08/06/14 21:00 History Buprenorphine/Naloxone S.l. 1 each SL Q12HR 10/02/18 10/02/18 Unknown History [Suboxone 8 mg/2 mg] Citalopram [Celexa] 20 mg PO DAILY 10/02/18 10/02/18 Unknown History Diazepam [Valium] 5 mg PO Q8HR 10/02/18 10/02/18 Unknown History Sucralfate [Carafate] 1 gm PO TID 10/02/18 10/02/18 Unknown History Umeclidinium Brm/Vilanterol Tr 1 each IH Q12HR 10/02/18 10/02/18 Unknown History [Anoro Ellipta 62.5-25 Mcg INH] Gabapentin 300 mg PO TID 10/03/18 10/03/18 Unknown History Albuterol 2.5MG/Ipratrop 0.5MG 3 ml INH RTQ6H #120 neb 10/04/18 Unknown Rx [Duoneb] CefUROXIME [Ceftin] 250 mg PO Q12HR 7 Days #14 tab 10/04/18 Unknown Rx - History of Present Illness-Neuro Nature of Presenting Problem: Patient is a 59 year old female who presents to the ED via EMS with altered mental status. EMS states patient's daughter reported patient has been altered for 2 days and was found unresponsive this morning. Patient has a history of overdose and CVA. EMS states family stated they give the patient her medications due to the prior overdose. EMS reports patient's O2 sat was 70% and they placed her on a non rebreather mask at 15 L and O2 sat increased to 93%. Severity: reports: moderate Onset/Duration: reports: this morning Timing: reports: still present Context: reports: found unresponsive by family Character of Altered Mental Status: reports: unresponsive Any recent trauma/injury?: reports: none Similar Symptoms Previously?: Yes Recently seen or treated by another doctor?: No Review of Systems - Adult - REVIEW OF SYSTEMS - ADULT ROS:: unobtainable per condition Constitutional: reports: no symptoms reported Eyes: reports: no symptoms reported Ears, Nose, Mouth & Throat: reports: no symptoms reported Cardiovascular: reports: no symptoms reported Respiratory: reports: no symptoms reported Gastrointestinal: reports: no symptoms reported Genitourinary: reports: no symptoms reported Musculoskeletal: reports: no symptoms reported Integumentary: reports: no symptoms reported Neurological: reports: no symptoms reported Psychiatric: reports: no symptoms reported Endocrine: reports: no symptoms reported Hematologic/Lymphatic: reports: no symptoms reported Allergic/Immunologic: reports: no symptoms reported All Other Systems: Reviewed and Negative Past History - Adult - PAST MEDICAL HISTORY-ADULT Review of Records: reports: Old Records Reviewed, Nursing Assessment Review, Medications Reviewed, Social history reviewed & non-contributory. Major Childhood Illnesses: reports: denies history Cardiovascular: reports: HTN Respiratory: reports: asthma, COPD Gastrointestinal: reports: denies history Obstetrical/Gynecological: reports: denies history Genitourinary: reports: denies history Musculoskeletal: reports: denies history Neurological: reports: CVA Psychiatric: reports: denies history Endocrine/Immune: reports: Diabetes Other Conditions: reports: denies history - PRIOR SURGERIES/PROCEDURES Surgical/Procedure History: reports: hysterectomy, back/neck (back) - IMMUNIZATION STATUS Childhood Immunizations: See Nurse Assessment Flu Vaccine: See Nurse Assessment - FAMILY HISTORY Family History: reviewed, not pertinent - SOCIAL HISTORY Smoking: cigarettes, less than 1 pack/day Provider spent 3-5 mins advising pt. on dangers of tobacco.: Discussed manners to quit use, and f/u contacts for add'l counseling. Substance Use: denies Living Situation: family Physical Exam- Neurological - Physical Exam-Neuro Initial Vital Signs Reviewed: Yes General Appearance: no apparent distress, obese, other (unresponsive). negative: alert HENMT: normocephalic/atraumatic, moist mucous membranes, other (no gag reflex present.). negative: angioedema Head Injury: no evidence of injury. negative: contusions, ecchymosis, lacerations Respiratory: chest non-tender, lungs clear, other (snoring respirations). negative: crackles, wheezing Cardiovascular: normal peripheral pulses, regular rate, rhythm. negative: tachycardia, systolic murmur Extremity: normal inspection. 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 negative: cyanosis, ecchymosis, erythema, laceration(s) Psych/Mental Status: other (unresponsive). negative: anxious, paranoid Progress - PLAN OF CARE/RESULTS Progress/Plan/Lab Results: Vital Signs - 8 hr 03/11/19 10:06 03/11/19 10:15 03/11/19 11:31 Temperature 97.4 F L Pulse Rate 73 76 Respiratory Rate 10 L 13 Blood Pressure 112/62 100/65 O2 Sat by Pulse Oximetry 99 96 03/11/19 12:06 03/11/19 12:39 03/11/19 13:03 Temperature Pulse Rate 76 75 79 Respiratory Rate 11 L 12 12 Blood Pressure 101/55 91/40 93/45 O2 Sat by Pulse Oximetry 100 100 100 Laboratory Results - last 24 hr 03/11/19 03/11/19 03/11/19 10:09 10:27 10:27 WBC RBC Hgb Hct MCV MCH MCHC RDW Std Deviation Plt Count MPV Immature Gran % (Auto) Neut % (Auto) Lymph % (Auto) Whitfield % (Auto) Eos % (Auto) Baso % (Auto) Immature Gran # (Auto) Neut # (Auto) Lymph # (Auto) Whitfield # (Auto) Eos # (Auto) Baso # (Auto) PT INR PTT (Actin FS) Specimen Type ARTERIAL Sample Site R BRACHIAL pH 7.24 L pCO2 58 H* pO2 108 H HCO3 22.4 Base Excess -3.2 L Oxyhemoglobin 93.7 L ABG O2 Sat (Calculated) 15.7 ABG O2 Saturation 99.3 ABG Carboxyhemoglobin 4.40 H ABG Methemoglobin 1.2 Bruce Test NO A-a O2 Difference 533.0 Total Hemoglobin 11.8 Lactate 1.70 Liter Flow 15.0 Blood Gas Modality NRB FiO2 % 100.0 Sodium Potassium Chloride Carbon Dioxide Anion Gap BUN Creatinine Estimated GFR/1.73 m2 BUN/Creatinine Ratio Glucose Calculated Osmolality Calcium Magnesium Total Bilirubin AST ALT Alkaline Phosphatase Creatine Kinase Creatine Kinase Index CK-MB (CK-2) Troponin T Total Protein Albumin Globulin Albumin/Globulin Ratio Plasma Lactate Urine Source CATH Urine Color YELLOW Urine Clarity CLEAR Urine pH 5.0 Ur Specific Mobile 1.020 Urine Protein TRACE A Urine Ketones TRACE Urine Blood NEGATIVE Urine Nitrite NEGATIVE Urine Bilirubin 1+ A Urine Urobilinogen NORMAL Urine Microscopic RBC Not Reportable Urine WBC NEGATIVE Ur Epithelial Cells <10 Urine Bacteria 1+ Urine Glucose NEGATIVE Urine Opiates Screen NONE DETECTED Ur Oxycodone Screen NONE DETECTED Urine Methadone Screen NONE DETECTED U Propoxyphene Qual NONE DETECTED Ur Barbituates Screen NONE DETECTED Ur Tricyclics Screen PRESUMPTIVE POSITIVE A Ur Phencyclidine Scrn NONE DETECTED Ur Amphetamines Screen NONE DETECTED U Methamphetamines Scrn NONE DETECTED U Benzodiazepines Scrn PRESUMPTIVE POSITIVE A Urine Cocaine Screen NONE DETECTED U Cannabinoids Screen NONE DETECTED 03/11/19 03/11/19 03/11/19 11:25 11:25 11:25 WBC 10.66 RBC 4.06 L Hgb 11.9 L Hct 37.2 MCV 91.6 MCH 29.3 MCHC 32.0 L RDW Std Deviation 14.3 Plt Count 203 MPV 10.9 H Immature Gran % (Auto) 0.2 Neut % (Auto) 72.5 Lymph % (Auto) 17.6 L Whitfield % (Auto) 7.7 Eos % (Auto) 1.8 Baso % (Auto) 0.2 Immature Gran # (Auto) 0.02 Neut # (Auto) 7.73 H Lymph # (Auto) 1.88 Whitfield # (Auto) 0.82 H Eos # (Auto) 0.19 Baso # (Auto) 0.02 PT 13.6 INR 0.99 PTT (Actin FS) 27.3 Specimen Type Sample Site pH pCO2 pO2 HCO3 Base Excess Oxyhemoglobin ABG O2 Sat (Calculated) ABG O2 Saturation ABG Carboxyhemoglobin ABG Methemoglobin Bruce Test A-a O2 Difference Total Hemoglobin Lactate Liter Flow Blood Gas Modality FiO2 % Sodium 133 L Potassium 5.8 H Chloride 97 L Carbon Dioxide 24 L Anion Gap 12 BUN 44 H Creatinine 2.3 H Estimated GFR/1.73 m2 22 BUN/Creatinine Ratio 19 Glucose 81 Calculated Osmolality 277 Calcium 8.7 L Magnesium Total Bilirubin 0.20 AST 87 H ALT 27 Alkaline Phosphatase 78 Creatine Kinase 3109 H Creatine Kinase Index 2.0 CK-MB (CK-2) 63.40 H Troponin T Total Protein 6.8 Albumin 3.7 Globulin 3.0 Albumin/Globulin Ratio 1.0 Plasma Lactate Urine Source Urine Color Urine Clarity Urine pH Ur Specific Mobile Urine Protein Urine Ketones Urine Blood Urine Nitrite Urine Bilirubin Urine Urobilinogen Urine Microscopic RBC Urine WBC Ur Epithelial Cells Urine Bacteria Urine Glucose Urine Opiates Screen Ur Oxycodone Screen Urine Methadone Screen U Propoxyphene Qual Ur Barbituates Screen Ur Tricyclics Screen Ur Phencyclidine Scrn Ur Amphetamines Screen U Methamphetamines Scrn U Benzodiazepines Scrn Urine Cocaine Screen U Cannabinoids Screen 03/11/19 03/11/19 03/11/19 11:25 11:25 11:25 WBC RBC Hgb Hct MCV MCH MCHC RDW Std Deviation Plt Count MPV Immature Gran % (Auto) Neut % (Auto) Lymph % (Auto) Whitfield % (Auto) Eos % (Auto) Baso % (Auto) Immature Gran # (Auto) Neut # (Auto) Lymph # (Auto) Whitfield # (Auto) Eos # (Auto) Baso # (Auto) PT INR PTT (Actin FS) Specimen Type Sample Site pH pCO2 pO2 HCO3 Base Excess Oxyhemoglobin ABG O2 Sat (Calculated) ABG O2 Saturation ABG Carboxyhemoglobin ABG Methemoglobin Bruce Test A-a O2 Difference Total Hemoglobin Lactate Liter Flow Blood Gas Modality FiO2 % Sodium Potassium Chloride Carbon Dioxide Anion Gap BUN Creatinine Estimated GFR/1.73 m2 BUN/Creatinine Ratio Glucose Calculated Osmolality Calcium Magnesium 1.9 Total Bilirubin AST ALT Alkaline Phosphatase Creatine Kinase Creatine Kinase Index CK-MB (CK-2) Troponin T 0.052 Total Protein Albumin Globulin Albumin/Globulin Ratio Plasma Lactate 1.4 Urine Source Urine Color Urine Clarity Urine pH Ur Specific Mobile Urine Protein Urine Ketones Urine Blood Urine Nitrite Urine Bilirubin Urine Urobilinogen Urine Microscopic RBC Urine WBC Ur Epithelial Cells Urine Bacteria Urine Glucose Urine Opiates Screen Ur Oxycodone Screen Urine Methadone Screen U Propoxyphene Qual Ur Barbituates Screen Ur Tricyclics Screen Ur Phencyclidine Scrn Ur Amphetamines Screen U Methamphetamines Scrn U Benzodiazepines Scrn Urine Cocaine Screen U Cannabinoids Screen Orders Category Date Time Status Cardiac Monitoring DIRECTED Care 03/11/19 10:08 Active [facility] Cath Insertion ORDERED Care 03/11/19 10:15 Active IV Insertion ORDERED Care 03/11/19 10:08 Active Notify MD of + Sepsis Screen NOW Care 03/11/19 10:08 Active Notify Physician As Ordered Care 03/11/19 10:08 Active CHEST-1 VIEW [RAD] Stat Exams 03/11/19 10:[address] HEAD W/CONTRAST [CT] Stat Exams 03/11/19 10:09 Completed ABG [RESP] Routine Lab 03/11/19 10:09 Completed ABG [RESP] Routine Lab 03/11/19 13:14 Ordered BLOOD CULTURE [BLDCUL] Stat Lab 03/11/19 10:13 Ordered CBC WITH DIFF [HEME] Stat Lab 03/11/19 11:25 Completed CK PROFILE [SP CHEM] Stat Lab 03/11/19 11:25 Completed COMPREHENSIVE METABOLIC PANEL [CHEM] Stat Lab 03/11/19 11:25 Completed LACTATE, PLASMA [CHEM] Lab 03/11/19 11:25 Completed LACTATE, PLASMA [CHEM] Lab 03/11/19 12:59 Received LACTATE, PLASMA [CHEM] Lab 03/11/19 16:15 Uncollected MAGNESIUM [CHEM] Stat Lab 03/11/19 11:25 Completed PROTIME WITH INR [COAG] Stat Lab 03/11/19 11:25 Completed PTT [COAG] Stat Lab 03/11/19 11:25 Completed TROPONIN T Stat Lab 03/11/19 11:[address] W/POSS RFLX CULT [URINALYSIS] Stat Lab 03/11/19 10:27 Completed URINE DRUG SCREEN PL Stat Lab 03/11/19 10:27 Completed 0.9% Sodium Chloride Inj [Ns] 1,000 ml Med 03/11/19 12:15 Discontinued IV 999 mls/hr 0.9% Sodium Chloride Inj [Ns] 1,000 ml Med 03/11/19 13:11 Active IV 999 mls/hr Dextrose 50% Syringe [D50w Syringe] Med 03/11/19 12:41 Discontinued 50 ml .ROUTE .STK-MED ONE Dextrose 50% Syringe [D50w Syringe] Med 03/11/19 12:46 Discontinued 50 ml IV NOW ONE Naloxone [Narcan] Med 03/11/19 10:15 Discontinued 2 mg .ROUTE .STK-MED ONE Naloxone [Narcan] Med 03/11/19 12:40 Discontinued 2 mg .ROUTE .STK-MED ONE Naloxone [Narcan] Med 03/11/19 10:22 Discontinued 2 mg IV NOW ONE Naloxone [Narcan] Med 03/11/19 10:47 Discontinued 2 mg IV NOW ONE Naloxone [Narcan] Med 03/11/19 12:43 Discontinued 2 mg IV NOW ONE Naloxone [Narcan] Med 03/11/19 13:11 Discontinued 2 mg IV NOW ONE Oxygen Device Stat Oth 03/11/19 10:08 Active EKG [EKG] Routine Ther 03/11/19 Draft Result Diagrams: 03/11/19 11:25 03/11/19 11:25 - REASSESSMENT Reassessment #1 Time Reassessed: 11:06 Status: improving (patient improved with Narcan) Reassessment #2 Status: worsening (patient's respirations decreased. FSBS was 77. patient received 1 mg of Narcan and an amp of D50) - EKG 1 Time of EKG reading by physician:: 10:51 EKG Read and Signed by:: Gerardo North EKG Interpretation (*Must complete 3 of following elements*): Abnormal Rate: 79 Rhythm: sinus rhythm with 1st degree AV block [place]: normal Comments: otherwise normal ECG - XRAY 1 XRAY Study: Chest Impression: See EMR Report ( CHEST-1 VIEW - 03/11/2019 INDICATION: ams COMPARISON: 10/01/2018 FINDINGS: Lung volumes are critically low. There is severe crowding and some atelectasis in the lung bases, nonspecific. IMPRESSION: Critically low lung volumes. Electronically signed by Mac Crowley 03/11/2019 10:50 AM 03/11/19 1050 Interpreting Physician: Mac Crowley MD Dictated Date/Time: 03/11/19 1048 cc: Gerardo North MD; None,PCP) - CT/MRI 1 CT Study: Head Impression: See EMR Report (CT HEAD W/CONTRAST - 03/11/2019 INDICATION: ams TECHNIQUE: COMPARISON: None FINDINGS: There is very mild periventricular white matter chronic microvascular disease. The ventricles and sulci are normal in size and contour. No intracranial mass or hemorrhage. The skull is intact. The sinuses are clear. IMPRESSION: No acute disease. This exam was performed using automated exposure control, adjustment of mA or kV according to patient size, and/or use of iterative reconstruction technique Electronically signed by Mac Crowley 03/11/2019 10:48 AM 03/11/19 1048 Interpreting Physician: Mac Crowley MD Dictated Date/Time: 03/11/19 1046 cc: Gerardo North MD; None,PCP) - CONSULTS/PCP/HOSPITALIST Notification #1 *Consult/PCP/Hospitalist*: Dr. Valdivia Time Discussed: 12:24 Reason/Comments: Dr. North consulted with Dr. Valdivia about patient. #2 Consult: Dr. Valdivia Time Discussed: 13:18 Reason/Comments: Dr. North consulted with Dr. Valdivia about patient. Consult Disposition: Will see in ED, Admit Departure - Departure Date of Disposition Decision: 03/11/19 Time of Disposition Decision: 13:18 DIAGNOSIS: Altered mental status, Dehydration, Hypoventilation Disposition: ADMITTED INPATIENT 09 Certified Medical Emergency: Emergent Condition: Stable Referrals and Follow-Ups: None,PCP [Primary Care Provider] - - Critical Care Note This patient required my direct & personal management of CC.: Yes Total Time (mins): 42 Critical Care Statement: This patient required my direct personal management to treat or rule out processes, the absence of which, could potentiallly result in sudden, clinically significant life or limb threatening deterioration. Attestation - Physician/ OMERO Attestation The physician spent face to face time with patient:: Yes Advanced Practice Provider documentation review:: Supervising physician onsite and consulted in the evaluation and care of this patient. The physician did have a face to face encounter with the patient. This chart was documented by the indicated scribe, (Antonella Castillo Scribe) and accurately reflects the services I performed and decisions made by me, Gerardo North MD, as attested by the provider's signature.
--- NOTE | 2019-03-11 15:10 | ED EKG INTERP ---
This chart was entered by Antonella Castillo Scribe, acting as scribe for Gerardo North MD. EKG Interpretation - EKG Time of EKG reading by physician:: 14:27 EKG Read and Signed by:: Gerardo North EKG Interpretation (*Must complete 3 of following elements*): Abnormal Rate: 75 Rhythm: sinus rhythm with 1st degree AV block [place]: normal Comments: otherwise normal ECG Attestation - Physician/ OMERO Attestation The physician spent face to face time with patient:: Yes Advanced Practice Provider documentation review:: Supervising physician onsite and consulted in the evaluation and care of this patient. The physician did have a face to face encounter with the patient. This chart was documented by the indicated scribe, (Antonella Castillo Scribe) and accurately reflects the services I performed and decisions made by me, Gerardo North MD, as attested by the provider's signature.
[2019-03-11 16:02] LABS: CK-MB 58.17 ng/mL (0.0-5.0)
--- NOTE | 2019-03-11 16:44 | EKG Report ---
Test Performed on : 03/11/2019 2:27:32 PM Test Reason : repeat Blood Pressure : / mmHG Vent. Rate : 075 BPM Atrial Rate : 075 BPM P-R Int : 220 ms QRS Dur : 088 ms QT Int : 416 ms P-R-T Axes : 075 063 067 degrees QTc Int : 464 ms Sinus rhythm. with 1st degree AV block. Otherwise normal ECG When compared with ECG of 11-MAR-2019 10:51, (Unconfirmed) No significant change was found Unconfirmed Result
[2019-03-11] MEDS ORDERED: DUONEB (A & A) ONE (16:57)
[2019-03-11] MEDS: DUONEB (A & A) INH SCH ×3 (17:00→22:50)
--- NOTE | 2019-03-11 17:37 | HISTORY AND PHYSICAL ---
PRIMARY CARE PHYSICIAN: Listed as none. CHIEF COMPLAINT: Altered mental status, possible drug overdose. HISTORY OF PRESENTING ILLNESS: This is a 59-year-old, female who presents to [facility] ER via EMS after the patient's daughter reported that she had been altered for the last couple of days and then this morning was found unresponsive. She has a history of overdose and a stroke. EMS stated that the patient's O2 saturation on arrival to her home was 70% and they placed her on a non-rebreather mask at 15 L and her O2 saturation increased to 93%. The family states that they have been giving her medications due to her prior overdose, but the ER did give her Narcan and she responded appropriately momentarily. Her blood sugar on arrival was noted to be 77, so she was given an amp of D50. Her urine drug screen was presumptive positive for tricyclics and benzodiazepines. Her ABG showed a pH of 7.24, pCO2 of 58, pO2 of 108, and that was on her 15% nonrebreather. Her BUN was 44 with a creatinine of 2.3. Creatine kinase was 3109 with a CK-MB of 63.40, troponin 0.052. Plasma lactate was 1.4. She is currently lying in Trendelenburg position on BiPAP in the emergency room. Does not respond to verbal stimuli or tactile stimuli and made some moaning with sternal rub at this time. So, she will be admitted to the intensive care unit for further evaluation and treatment. PAST MEDICAL HISTORY: Asthma, COPD, hypertension, seizure disorder, CVA and drug overdose. PAST SURGICAL HISTORY: Hysterectomy, back surgery x9 and 2 knee surgeries. FAMILY HISTORY: Reviewed and noncontributory. SOCIAL HISTORY: She still smokes a pack of cigarettes a day. No alcohol or illicit drug use noted. ALLERGIES: Atorvastatin. HOME MEDICATIONS: Will all be held at this time. REVIEW OF SYSTEMS: Unable to obtain from patient at this time due to unresponsiveness. PHYSICAL EXAMINATION: VITAL SIGNS: On arrival, she had a temperature of 97.4, pulse 73, respirations 10, blood pressure 112/62. Was saturating 99% on a non-rebreather, currently saturating 100% on BiPAP. HEENT: Normocephalic, atraumatic. Normal ENT inspection. Oropharynx and nares are clear. Eyes: Pupils are equal, round, reactive to light and accommodation. Extraocular movements unable to assess at this time. NECK: Normal inspection, normal range of motion. LUNGS: With decreased breath sounds bilaterally. Equal lung expansion. Chest wall movement. HEART: Regular rate and rhythm. No murmurs, rubs, or gallops. ABDOMEN: Soft, nontender, nondistended. Bowel sounds are present x4 quadrants. MUSCULOSKELETAL: Unable to assess strength or movement at this time. NEUROLOGICAL: Unable to assess cranial nerves due to unresponsiveness. LABORATORY DATA: Showed a white blood cell count of 10.66, hemoglobin 11.9, hematocrit 37.2, platelets 2003. PT and INR of 13.6 and 0.99. ABG with a pH of 7.24, pCO2 of 58, pO2 of 108, bicarb 22.4. This was on 100% nonrebreather. Sodium 133, potassium 5.8, chloride 97, CO2 of 24, BUN of 44, creatinine 2.3, magnesium of 1.9, glucose 81. Creatine kinase of 3109, CK-MB of 63.40 with a troponin of 0.052. Plasma lactate was 1.4. Urinalysis was negative except for 1+ bacteria. Urine drug screen showed presumptive positive for tricyclics and benzodiazepines. CT of the head showed no acute disease. Chest x-ray showed critically low lung volumes. EKG showed sinus rhythm with a first-degree AV block at 79. ASSESSMENT: 1. Possible drug overdose. 2. Rhabdomyolysis. 3. Acute kidney injury. 4. Acute respiratory failure, hypercapnic. 5. Hyperkalemia. PLAN: She is being admitted to the intensive care unit, placed on telemetry. O2 per protocol and is currently on BiPAP, n.p.o. Blood cultures x2 are pending. We will recheck CK profile, troponin, ABG, BMP, CBC, plasma lactate in the a.m. Place on Pepcid 20 mg IV q.12, heparin 5000 units subcu q.12 hours. Narcan drip as directed per protocol. Normal saline at 150 mL an hour, Zofran 4 mg IV q.4 hours p.r.n., DuoNeb q.4 hours. We will hold her home medications at this time. Further orders after seen by attending. Dictated by EVERETTE Wren for Nickolas Shelton MD Addendum: Patient seen and examined by myself. Agree with EVERETTE note. It reflects my assessment and plan. Patient is being admitted to hospital for toxic encephalopathy secondary to drug overdose. I have check [place] PDMP and her risk is almost 900. Will admit patient to ICU with Narcan drip and monitor patient closely. cc: EVERETTE Wren MD [facility]
[2019-03-11] MEDS ORDERED: LEVOPHED 8 MG in D5 1/2 NS 250 ML IV SCH (18:15)
[2019-03-11] MEDS: NS 1,000 ML IV SCH (19:30)
[2019-03-11] MEDS: ATIVAN IV PRN (21:15)
[2019-03-12] MEDS: NS 1,000 ML IV SCH ×4 (01:44→23:21)
[2019-03-12] MEDS: DUONEB (A & A) INH SCH ×6 (03:12→23:25)
[2019-03-12 06:09] LABS: BE -2.6 mmoll (-3.0-3.0); BLOOD TYPE ARTERIAL; HCO3-(ACT) 22.9 mmoll (20.0-26.0); METHB 1.6 % (0.0-1.5); O2(CT) 15.6 mL/dL (15.0-23.0); O2HB 94.8 % (95.0-99.0); PCO2(98.6) 43 mmHg (35-45); PO2(98.6) 137 mmHg (60-100); SAMPLE BLOOD; SAO2 99.1 % (95.0-100.0); THB 11.5 g/dL (11.5-17.4); pH(98.6) 7.34 (7.35-7.45)
[2019-03-12 06:12] LABS: ALLEN TEST YES; MODALITY BI PAP
[2019-03-12 07:07] LABS: BASO# 0.02 X1000 (0.0-0.2); BASO% 0.3 % (0.0-0.8); EOS# 0.21 X1000 (0.0-0.7); EOS% 2.8 % (0.0-10.0); HEMATOCRIT 33.6 % (37.0-47.0); HEMOGLOBIN 10.3 g/dL (12.0-16.0); IMM GRAN# 0.01 X1000 (0.0-0.04); IMM GRAN% 0.1 % (0.0-0.5); LYMPH# 1.84 X1000 (1.2-3.4); LYMPH% 24.1 % (20.5-51.1); MCH 28.8 PG (27-31); MCHC 30.7 g/dL (33-37); MCV 93.9 FL (81-99); MONO# 0.67 X1000 (0.11-0.59); MONO% 8.8 % (1.7-9.3); MPV 11.3 FL (7.4-10.4); NEUT# 4.87 X1000 (1.4-6.5); NEUT% 63.9 % (42.2-75.2); PLT 174 X1000 (130-400); RBC 3.58 XMIL (4.2-5.4); RDW 14.7 % (11.5-14.5); WBC 7.62 X1000 (4.8-10.8)
[2019-03-12 07:22] LABS: AGAP 7; BUN 25 mg/dL (8-22); CALCIUM 7.4 mg/dL (8.8-10.2); CHLORIDE 109 mmol/L (98-107); COSMO 280; CREATININE 0.8 mg/dL (0.5-0.9); ESTIMATED GFR > 60; GLUCOSE 92 mg/dL (70-104); POTASSIUM 5.1 mmol/L (3.5-5.1); SODIUM 138 mmol/L (136-145); TCO2 23 mmol/L (25-35)
--- NOTE | 2019-03-12 10:51 | PROGRESS NOTE ---
DATE: 03/12/2019 SUBJECTIVE: The patient continues to be lethargic, a little bit better in comparing with yesterday. According to nursing staff, she was waking up some this morning. OBJECTIVE: Vital Signs: Temperature 98.0 degrees, heart rate 82, respiratory rate 16, blood pressure 108/50, O2 saturation 92% on 5 L nasal cannula. General: This is a chronically ill- appearing, looking older than her stated age, 59-year-old female lying in bed, in no acute distress. Cardiovascular: S1 and S2 heard. No murmurs, gallops, or rubs. Regular rate and rhythm. Respiratory: Coarse breath sounds noted in both pulmonary bases. Patient not using any accessory muscles or having work of breathing. Abdomen: Soft, a little bit distended but nontender to palpation. Bowel sounds present. No organomegaly. Extremities: No clubbing, cyanosis, or edema. Peripheral pulses present in both legs. Neurologic: The patient is still lethargic. I am unable to assess cranial nerves due to unresponsiveness. LABORATORY DATA: White cell count 7.6, hemoglobin 10.3, hematocrit 33.6, platelets 174,000. ABG shows pH 7.34, with pCO2 43, and pO2 137. On that sample was taking BiPAP. BMP shows creatinine 0.8, with chloride of 109. ASSESSMENT AND PLAN: 1. Toxic encephalopathy secondary to drug overdose. Unfortunately, this patient was found unresponsive, and on seeing the medication that she takes, she is taking Suboxone and clonazepam. I do not know if she has overdosed intentionally or not. In any case we will continue with IV fluids. We will continue to monitor this patient closely in the intensive care unit and we will use Ativan just in case. 2. Acute hypercapnic and hypoxemic respiratory failure. Patient is using 5 L of nasal cannula, and with that amount of oxygen she is doing fine. 3. Hyperkalemia. Resolved. 4. Acute kidney injury. Completely resolved. That was most likely secondary to dehydration. 5. Opiate dependence. I had a long conversation with the daughter, who reports that this patient is bipolar, has been using and abusing drugs a lot. The plan is to keep her in the hospital until whenever she wakes up, and then the daughter, who has power of bulldozer operator, recommends to send her to detox. center In that regard, we are going to keep this patient over the weekend in the hospital, and on Thursday we will consult social service coordinator for detox center. cc: Nickolas Shelton MD MTDD
[2019-03-12] MEDS: HALDOL IV PRN (19:00)
[2019-03-12] MEDS: ATIVAN IV PRN ×2 (19:53→23:22)
[2019-03-13] MEDS: HALDOL IV PRN ×2 (00:34→07:45)
[2019-03-13] MEDS: DUONEB (A & A) INH SCH ×6 (03:50→23:05)
[2019-03-13] MEDS: ATIVAN IV PRN ×3 (04:07→13:23)
[2019-03-13 07:32] LABS: BASO# 0.01 X1000 (0.0-0.2); BASO% 0.1 % (0.0-0.8); EOS# 0.17 X1000 (0.0-0.7); EOS% 2.3 % (0.0-10.0); HEMATOCRIT 33.9 % (37.0-47.0); HEMOGLOBIN 10.1 g/dL (12.0-16.0); IMM GRAN# 0.01 X1000 (0.0-0.04); IMM GRAN% 0.1 % (0.0-0.5); LYMPH# 1.71 X1000 (1.2-3.4); MCH 28.5 PG (27-31); MCHC 29.8 g/dL (33-37); MCV 95.5 FL (81-99); MONO# 0.71 X1000 (0.11-0.59); MONO% 9.5 % (1.7-9.3); MPV 11.3 FL (7.4-10.4); NEUT# 4.84 X1000 (1.4-6.5); PLT 170 X1000 (130-400); RBC 3.55 XMIL (4.2-5.4); RDW 14.8 % (11.5-14.5); WBC 7.45 X1000 (4.8-10.8)
[2019-03-13 07:44] LABS: AGAP 7; BUN 13 mg/dL (8-22); CALCIUM 7.8 mg/dL (8.8-10.2); CHLORIDE 110 mmol/L (98-107); COSMO 283; CREATININE 0.7 mg/dL (0.5-0.9); ESTIMATED GFR > 60; GLUCOSE 92 mg/dL (70-104); SODIUM 142 mmol/L (136-145); TCO2 26 mmol/L (25-35)
[2019-03-13] MEDS ORDERED: HALDOL IM PRN (09:59)
--- NOTE | 2019-03-13 10:13 | PROGRESS NOTE ---
DATE: 03/13/2019 SUBJECTIVE: The patient continues to be lethargic. The patient has been agitated on and off. The Narcan drip had been stopped yesterday in the morning. Upon my examination today, she mumbles some unintelligible words. OBJECTIVE: Vital Signs: Temperature 99.2 degrees, heart rate 90, respiratory rate 18, blood pressure 146/81, O2 saturation 4 L of oxygen by nasal cannula. General Examination: This is a chronically ill-appearing and is looking older than her stated age, 59-year-old, female lying in bed, in no acute distress. Cardiovascular Examination: S1 and S2 heard. No murmurs, gallops, or rubs. Regular rate and rhythm. Respiratory Examination: Coarse breath sounds noted in both pulmonary bases. Patient is not using any accessory muscles or having work of breathing. Abdomen: Soft. A little bit distended. Nontender to palpation. Bowel sounds present. No organomegaly. Extremities: No clubbing, cyanosis, or edema. Peripheral pulses present in lower extremities. Neurological Examination: The patient is still lethargic. Able to tell me a few words. I am not unable to assess cranial nerves due to the lethargy. Laboratory Data: White cell count 7.45, with hemoglobin 10.1, hematocrit 33.9, platelets 170,000. Normal BMP. ASSESSMENT AND PLAN: 1. Toxic encephalopathy secondary to drug overdose. This patient was admitted to the hospital because she was found unresponsive. She takes Suboxone and clonazepam. I am not completely sure that she has overdosed intentionally or not. I checked in the [place] Prescription Drug Monitoring Program and her overdose risk score is 810. She is receiving, according to that database, Suboxone 8/2 mg and also diazepam 10 mg daily. Actually, she had filled out both medications on March 07, 84 tablets of Suboxone and 90 tablets of diazepam. I am checking for last year. She has been receiving similar medications including also Percocet and Suboxone as well. At this point, she is not on any Narcan drip. She is still somehow confused. We will start a small dose of morphine just in case she is hurting because I do not want her to go into withdrawals. I had talked with the family yesterday, actually the daughter who has power of state attorney, and she wanted her to be sent to detox center from here. We are going to consult a director social service tomorrow about it. In the meantime, of course, we are going to keep monitoring this patient here in the intensive care unit. 2. Acute hypercapnic and hypoxemic respiratory failure. The patient continues to require 4 L of nasal cannula. She is fine. I do not know if she uses oxygen at home or not. We will get more information from the daughter whenever she is here. 3. Hyperkalemia, resolved. 4. Acute kidney injury. Her creatinine was very elevated at admission but is completely back to normal now. right now. 5. Opiate dependence. As we mentioned above, we will try to send this patient to a detox center. Actually, the daughter mentioned a center the [facility] in [place]. We will consult director social service tomorrow. We will go from there. cc: Nickolas Shelton MD MTDD
[2019-03-13] MEDS: MORPHINE IV PRN ×2 (10:26→14:36)
[2019-03-13] MEDS: NICODERM PATCH TD SCH (10:26)
[2019-03-13] MEDS ORDERED: PHENOBARBITAL IV ONE (12:02)
[2019-03-13] MEDS: NS 1,000 ML IV SCH ×3 (12:25→18:19)
[2019-03-14] MEDS: MORPHINE IV PRN ×4 (01:09→23:50)
[2019-03-14] MEDS: ATIVAN IV PRN ×4 (01:37→23:50)
[2019-03-14] MEDS ORDERED: GEODON IM ONE (03:22)
[2019-03-14] MEDS ORDERED: STERILE WATER INJ. INJ ONE (03:22)
[2019-03-14] MEDS ORDERED: GEODON IM PRN (03:23)
[2019-03-14] MEDS ORDERED: STERILE WATER INJ. INJ PRN (03:23)
[2019-03-14] MEDS ORDERED: PHENOBARBITAL IV ONE (03:24)
[2019-03-14] MEDS: DUONEB (A & A) INH SCH ×5 (03:50→19:40)
[2019-03-14 07:27] LABS: BASO# 0.02 X1000 (0.0-0.2); BASO% 0.3 % (0.0-0.8); EOS# 0.18 X1000 (0.0-0.7); EOS% 2.8 % (0.0-10.0); HEMATOCRIT 31.2 % (37.0-47.0); HEMOGLOBIN 9.7 g/dL (12.0-16.0); IMM GRAN# 0.01 X1000 (0.0-0.04); IMM GRAN% 0.2 % (0.0-0.5); LYMPH# 1.46 X1000 (1.2-3.4); LYMPH% 22.6 % (20.5-51.1); MCHC 31.1 g/dL (33-37); MCV 93.1 FL (81-99); MONO# 0.59 X1000 (0.11-0.59); MONO% 9.1 % (1.7-9.3); MPV 10.9 FL (7.4-10.4); PLT 184 X1000 (130-400); RBC 3.35 XMIL (4.2-5.4); RDW 14.2 % (11.5-14.5); WBC 6.46 X1000 (4.8-10.8)
[2019-03-14 07:50] LABS: AGAP 9; CHLORIDE 105 mmol/L (98-107); GLUCOSE 89 mg/dL (70-104); POTASSIUM 4.5 mmol/L (3.5-5.1); SODIUM 139 mmol/L (136-145); TCO2 25 mmol/L (25-35)
[2019-03-14 07:51] LABS: BUN 7 mg/dL (8-22); COSMO 275; CREATININE 0.5 mg/dL (0.5-0.9); ESTIMATED GFR > 60
[2019-03-14] MEDS: LIBRIUM PO SCH ×3 (09:03→21:16)
[2019-03-14] MEDS: NICODERM PATCH TD SCH (09:03)
[2019-03-14] MEDS: NS 1,000 ML IV SCH ×2 (13:45→23:51)
[2019-03-14] MEDS ORDERED: BLISTEX MEDICATED BERRY LIP BALM TOP ONE (14:17)
--- NOTE | 2019-03-14 22:54 | PROGRESS NOTE ---
DATE: 03/14/2019 SUBJECTIVE: Patient is still confused and disoriented. She does not answer questions. Did require BiPAP last night. Has been getting combative at times. PHYSICAL EXAMINATION: Temperature 92 degrees, pulse 88, respiratory 18, BP 129/50. She is awake, alert. Currently, she is not on BiPAP. She is in no respiratory distress.HEENT: Normocephalic. Neck: Supple. Cardiovascular: Regular rate. Chest: Relatively clear. No crackles. No wheezing. Abdomen: Soft, nondistended. Extremities: Moves all extremities. Neurologic: No changes. The patient is somnolent but arousable. ASSESSMENT: 1. Toxic encephalopathy. This presenting secondary to drug overdose. 2. Acute hypercapnic respiratory failure. 3. Acute hypoxic respiratory failure. 4. Hyperkalemia resolved. 5. Acute kidney injury resolved. 6. Opiate dependence. PLAN: We will continue patient in the hospital. Continue to follow further orders as needed. TIME SPENT: Thirty-five minutes was spent in total. cc: Federico Phillip MD
[2019-03-15] MEDS: DUONEB (A & A) INH SCH ×7 (03:40→23:18)
[2019-03-15] MEDS: MORPHINE IV PRN (04:35)
[2019-03-15] MEDS: ATIVAN IV PRN ×2 (04:36→10:43)
[2019-03-15] MEDS: NICODERM PATCH TD SCH (09:23)
[2019-03-15] MEDS: SUBOXONE 2 MG/0.5 MG FILM SL SCH ×3 (09:23→21:18)
[2019-03-15] MEDS: COZAAR PO SCH (09:23)
[2019-03-15] MEDS: LIBRIUM PO SCH ×4 (09:24→21:18)
[2019-03-15] MEDS: NS 1,000 ML IV SCH (18:45)
[2019-03-15] MEDS: GLUCOPHAGE PO SCH (21:17)
[2019-03-15] MEDS: JANUVIA PO SCH (21:18)
[2019-03-15] MEDS: NEURONTIN PO SCH (21:25)
--- NOTE | 2019-03-15 23:23 | PROGRESS NOTE ---
DATE: 03/15/2019 SUBJECTIVE: The patient is much more awake, alert. She is in no distress. She is calm this morning. PHYSICAL EXAMINATION: Vital signs: Temperature 99.6, pulse 84, respiratory 18, BP 153/64. General: The patient is in no distress. She has no current complaints. HEENT: Normocephalic. Neck: Supple. Cardiovascular: Regular rate. Chest: Clear and nonlabored. Abdomen: Soft, obese, nondistended. Extremities: Moves all extremities. Neurologic: No changes. ASSESSMENT: 1. Toxic encephalopathy, most likely secondary to either intentional or unintentional drug overusage. 2. Acute hypercapnic respiratory failure secondary to drug overusage. 3. Acute hypoxic respiratory failure. 4. Hypertension. 5. Chronic pain. 6. Hyperkalemia. 7. Acute kidney injury, resolved. PLAN: Overall, the patient is much more awake, alert. She is in no distress currently. We will slowly start adding back some of her home medications. She is on a somewhat high dose of Suboxone at 6 mg 3 times a day. We will decrease this to 4 mg 3 times a day. We will restart her gabapentin and her Celexa and follow. Discussed with patient we do not need to restart all of her home medications at once as something caused her to be confused until we held all of the medicines. cc: Federico Phillip MD
[2019-03-16] MEDS: DUONEB (A & A) INH SCH ×6 (03:10→23:46)
[2019-03-16] MEDS: NS 1,000 ML IV SCH (04:11)
--- NOTE | 2019-03-16 09:42 | Diag Imaging Result Doc PS360 ---
EXAM: FOOT 2 VIEWS LEFT HISTORY: pain TECHNIQUE: Two views COMPARISON: None. FINDINGS: Bone density is within normal limits. There are mild osteoarthritic changes involving the great toe and dorsal midfoot. On the AP image there is lucency traversing the most distal tip of the fibula versus artifact or an accessory ossicle. Correlate with clinical examination of the distal fibula and if symptomatic consider follow-up left ankle radiographs to exclude a small avulsion fracture. IMPRESSION: 1.Mild osteoarthritic change as described above. 2.Small avulsion fracture versus an accessory ossicle or artifact left distal fibular tip. If symptomatic consider left ankle radiographs. Electronically signed by Claire Mukherjee 03/16/2019 9:40 AM
[2019-03-16] MEDS: COZAAR PO SCH (10:03)
[2019-03-16] MEDS: JANUVIA PO SCH ×2 (10:03→20:35)
[2019-03-16] MEDS: ELAVIL PO SCH (10:03)
[2019-03-16] MEDS: NICODERM PATCH TD SCH (10:03)
[2019-03-16] MEDS: GLUCOPHAGE PO SCH ×2 (10:04→20:35)
[2019-03-16] MEDS: CELEXA PO SCH (10:04)
[2019-03-16] MEDS: LIBRIUM PO SCH ×2 (10:04→20:35)
[2019-03-16] MEDS: NEURONTIN PO SCH ×3 (10:26→19:18)
[2019-03-16] MEDS: SUBOXONE 2 MG/0.5 MG FILM SL SCH ×3 (11:22→20:35)
--- NOTE | 2019-03-16 16:11 | Diag Imaging Result Doc PS360 ---
EXAM: ANKLE COMPLETE LEFT HISTORY: follow up TECHNIQUE: Three views COMPARISON: None. FINDINGS: No fracture, dislocation, or joint space abnormality is identified. There is mild osteoarthritic spurring. Ankle mortise is intact. There is soft tissue swelling about the ankle. IMPRESSION: Mild degenerative change. No acute bony abnormality. Electronically signed by Claire Mukherjee 03/16/2019 4:09 PM
[2019-03-17] MEDS: DUONEB (A & A) INH SCH ×4 (04:00→16:30)
[2019-03-17 07:30] VITALS: BP 151/68
[2019-03-17] MEDS: NICODERM PATCH TD SCH (09:13)
[2019-03-17] MEDS: SUBOXONE 2 MG/0.5 MG FILM SL SCH (09:13)
[2019-03-17] MEDS: COZAAR PO SCH (09:14)
[2019-03-17] MEDS: NEURONTIN PO SCH ×2 (09:14→13:08)
[2019-03-17] MEDS: GLUCOPHAGE PO SCH (09:14)
[2019-03-17] MEDS: ELAVIL PO SCH (09:14)
[2019-03-17] MEDS: LIBRIUM PO SCH (09:14)
[2019-03-17] MEDS: JANUVIA PO SCH (09:14)
[2019-03-17] MEDS: CELEXA PO SCH (09:14)
--- NOTE | 2019-03-18 03:18 | DISCHARGE SUMMARY ---
ADMISSION DATE: 03/11/2019 DISCHARGE DATE: 03/17/2019 PERTINENT PROCEDURES: Head CT, no acute disease. Initial chest x-ray, critically low lung volumes. Foot x-ray showed mild osteoarthritic changes, small avulsion fracture versus accessory ossicle or artifact of the left distal fibular tip. If symptomatic, consider left ankle radiographs. Ankle x-ray showed mild degenerative changes. No acute bony abnormality. There was no fracture, dislocation or joint space abnormality identified. There was mild osteoarthritic spurring. Ankle mortise is intact. There is soft tissue swelling about the ankle. DISCHARGE DIAGNOSES: 1. Toxic encephalopathy, most likely secondary to either intentional or unintentional drug overuse, resolved. 2. Acute hypercapnic respiratory failure secondary to drug overusage. 3. Acute hypoxemic respiratory failure, resolved. 4. Hypertension. 5. Chronic pain. 6. Hyperkalemia. 7. Acute kidney injury, resolved. HOSPITAL COURSE: Briefly, Ms. Rivas is a 59-year-old female who carries a past medical history of asthma, COPD, hypertension, seizure disorder, CVA and drug overdose, who presented to the [facility] ER with EMS and the daughter reported that she had been altered for a few days and was found unresponsive. She has a history of overdose and a stroke. Her O2 saturation per EMS was 70% at home. She was placed on a non-rebreather at 15 L. Her O2 saturation increased to 93. Per the daughter, she gives her mother her medication due to her prior overdose. The patient was given Narcan in the ED and she responded appropriately momentarily. Her blood sugar on arrival was noted to be 77. She was given an amp of D50. Her urine drug screen was positive for tricyclics and benzodiazepines. She was admitted to the ICU for further evaluation and treatment. All sedating medication was initially held. Over the next few days, the patient became more awake and alert. Started slowly adding back some of her home medications. She has tolerated that well. She did complain of some left foot pain. They did a x-ray that showed mild osteoarthritic changes and a small avulsion fracture versus accessory ossicle or artifact. The patient still complains of pain. I spoke with Orthopedics over the phone. They recommended a walking boot and to follow up with them as an outpatient. Ankle follow-up x-ray just showed some mild degenerative changes but no acute bony abnormality. VITAL SIGNS: At time of her discharge, temperature was 98 degrees, heart rate 86, respirations 18, blood pressure 151/68, O2 is 91% on 2 L nasal cannula. DISCHARGE DIET: Regular. DISCHARGE MEDICATIONS: 1. Desyrel 100 mg p.o. at bedtime. 2. Anoro Ellipta 62.5/25 mcg inhaler 1 each inhaled q.12 hours. 3. Amitriptyline 50 mg p.o. daily. 4. Celexa 20 mg p.o. daily. 5. Chantix 1 tablet p.o. b.i.d. 6. Cozaar 100 mg p.o. daily. 7. Gabapentin 300 mg p.o. t.i.d. 8. Janumet mg 1 each p.o. b.i.d. 9. Pravachol 20 mg p.o. daily. 10. Singulair 10 mg p.o. daily. 11. [*]inhaler 2 puffs 4 times a day p.r.n. 12. Suboxone 2 tablets p.o. t.i.d. 13. Valium 5 mg p.o. b.i.d. FOLLOWUP: Ms. Rivas is being discharged back home with Home Health and her [facility]. She does have home O2. She will follow up with her primary care provider, Dr. Kameron Delarosa as well as Dr. Rajendra Tellez. She is take all medications as prescribed. She has been educated on medication overuse and abuse as well as smoking cessation and the means to quit. She can return to the ED or call 911 for any worsening of symptoms. Dictated by EVERETTE Cartagean for Federico Phillip MD cc: MD Kameron Ponce MD
--- NOTE | 2019-03-18 04:00 | DISCHARGE SUMMARY ---
ADMISSION DATE: 03/11/2019 DISCHARGE DATE: 03/17/2019 ADDENDUM: Patient seen and examined by myself. Full note dictated and discussed with nurse practitioner. Patient currently is awake, alert, and in no distress. Thankfully, her symptoms have improved and she will be discharged home. Please see full dictation. cc: Federico Phillip MD
== END 2019-03-17 16:20 | disposition home health service (06) | DRG 917 ==
LOC: P.ED 10:05 → SUATTDRO 13:46 → P.EDIPHOLD 13:46 → P.MEDSURG 03-15 19:00
PROVIDERS: ATTEND Family Medicine
CPT/HCPCS: 51702; 70460; 71010; 71045; 73610; 73620; 80048; 80053; 80104; 80301; 80305; 81001; 82550; 82553; 82805; 82948; 83605; 83735; 84484; 85025; 85610; 85730; 87040; 93005; 94640; 94660; 94761; 94799; 96361; 96365; 96366; 96372; 96375; 96376; 97163; 99285; A9270; G0431; G0434; G0477; J1630; J1644; J2060; J2270; J2310; J2560; J3486; J7030; J7040; S0028; XXXXX